=== PATIENT | male | born 1940 | race Two or more races ===

== ENCOUNTER 2020-11-20 09:14 | Emergency (ER) | payer OTHER ==
[~2020-11-20] VITALS: Ht 170.2 cm; Wt 63.5 kg
[2020-11-20] MEDS ORDERED: PEPCID AC20 MG PO (16:00)
== END 2020-11-20 19:09 ==
LOC: ER 09:14
DX: R53.1 Weakness (principal); E46 Unspecified protein-calorie malnutrition; K57.30 Diverticulosis of large intestine without perforation or abscess without bleeding